=== PATIENT | female | born 1995 | race Caucasian/White ===

== ENCOUNTER → 2023-12-14 | Outpatient (CLI) | payer OTHER ==
--- NOTE | 2023-12-14 14:58 | NM ---
EXAMINATION TYPE: NM hepatobiliary w EF DATE OF EXAM: 12/14/2023 2:54 PM COMPARISON: No CLINICAL INDICATION:Female, 28 years old with history of R10.11 RIGHT UPPER QUADRANT PAIN; TECHNIQUE: The patient was given 4.1 mCi of Technetium 99m-Mebrofenin as a radiotracer and multiple scintigraphic images were obtained of the abdomen. Gallbladder function was also assessed after the a dministration of ensure drink and additional scintigraphic images were obtained of the abdomen. A reg ion of interest was drawn over the gallbladder and a timing activity curve was generated. The gallbla dder ejection fraction was calculated. FINDINGS: Normal uptake of radiotracer was identified within the liver with excretion into the hepatic and comm on biliary ducts. There was normal progressive washout of the liver over the course of the study. Rad iotracer uptake within the gallbladder at 6 minutes as well as small bowel activity was identified at 14 minutes. Maximum calculated gallbladder ejection fraction is: 89% at 30 minutes (Normal gallbladder ejection fraction is > 35%) IMPRESSION: 1. Normal hepatobiliary scan. 2. Normal ejection fraction.
== END | disposition home or self-care (01) ==
LOC: RADNMMAIN 12:13
PROVIDERS: ATTEND Family Medicine
DX: R10.11 Right upper quadrant pain (principal)
CPT/HCPCS: 78226; A9537